=== PATIENT | male | born 1955 | race Caucasian/White ===

== ENCOUNTER → 2018-01-01 | Outpatient (CLI) | payer OTHER ==
[~2018-01-01] MED LIST: HYDROCODONE-AP1 EAC6 PO; LIDODERM1 EACH TOP; NAPROSYN500 MG PO; PRILOSEC 20 MG20 MG; ROBAXIN 750 MG750 M1 PO; THYROID MEDICATION
== END ==
LOC: M.RAD 11:56
DX: S83.411A Sprain of medial collateral ligament of right knee, initial encounter (principal); X58.XXXA Exposure to other specified factors, initial encounter; Y93.89 Activity, other specified; Y92.89 Other specified places as the place of occurrence of the external cause; Y99.8 Other external cause status

== ENCOUNTER 2018-04-04 20:16 | Emergency (ER) | payer OTHER ==
[~2018-04-04] VITALS: Ht 188 cm; Wt 99.8 kg
[2018-04-04] MEDS ORDERED: PRILOSEC 20 MG20 MG (20:37)
[2018-04-04] MEDS ORDERED: THYROID MEDICATION (20:38)
[2018-04-04] MEDS ORDERED: HYDROCODONE-AP1 EAC6 PO (20:44)
[2018-04-04] MEDS ORDERED: NAPROSYN500 MG PO (20:44)
[2018-04-04] MEDS ORDERED: ROBAXIN 750 MG750 M1 PO (20:44)
[2018-04-04] MEDS ORDERED: LIDODERM1 EACH TOP (20:44)
[2018-04-04 20:55] VITALS: BP 130/90
== END 2018-04-04 20:56 | disposition home or self-care (01) ==
LOC: M.ERS 20:16
DX: M62.830 Muscle spasm of back (principal); Z88.5 Allergy status to narcotic agent; E05.90 Thyrotoxicosis, unspecified without thyrotoxic crisis or storm